=== PATIENT | male | born 1945 | race Caucasian/White ===

== ENCOUNTER 2017-07-08 18:26 | Emergency (ER) | payer OTHER ==
[~2017-07-08] VITALS: Ht 170.2 cm; Wt 63.5 kg
[2017-07-08 18:41] VITALS: BP 132/78
== END 2017-07-08 19:18 | disposition home or self-care (01) ==
LOC: ER 18:26
DX: S41.001A Unspecified open wound of right shoulder, initial encounter (principal); J44.9 Chronic obstructive pulmonary disease, unspecified; I10 Essential (primary) hypertension; F20.9 Schizophrenia, unspecified; I48.91 Unspecified atrial fibrillation; Z88.8 Allergy status to other drugs, medicaments and biological substances; Y04.0XXA Assault by unarmed brawl or fight, initial encounter; Y93.89 Activity, other specified; Y92.89 Other specified places as the place of occurrence of the external cause; Y99.8 Other external cause status

== ENCOUNTER 2019-07-23 02:46 | Inpatient (IN) | payer OTHER ==
[2019-07-23] VITALS (8 sets, daily range): BP systolic 104–126; BP diastolic 51–93
[~2019-07-23] VITALS: Ht 170.2 cm; Wt 65.3 kg
[2019-07-23 03:14] LABS: BE(vivo) 0.6 mmol/L (-2 to +3); HCO3 28.2 mmol/L (22.0-26.0); PCO2 56.3 mmHg (35.0-45.0); PO2 104.4 mmHg (80.0-100.0); pH 7.318 (7.360-7.450); sO2 97.3 % (92.0-98.0)
[2019-07-23 03:15] LABS: HEMATOCRIT 35.5 % (42.0-52.0); HEMOGLOBIN 12.2 gm/dL (14.0-18.0); MCH 31.2 pg (26.0-34.0); MCHC 34.3 g/dL (28.0-37.0); RBC 3.9 mil/uL (4.50-6.00); RDW 13.3 % (10.5-14.5); WBC 9.5 thou/uL (4.0-11.0)
[2019-07-23 03:16] LABS: ANION GAP 10 mmol/L (7-16); BUN 14 mg/dL (7-18); CALCIUM 8.8 mg/dL (8.5-10.1); CHLORIDE 92 mmol/L (98-107); CO2 30 mmol/L (21-32); CREATININE 1.2 mg/dL (0.7-1.3); GLUCOSE 213 mg/dL (74-106); POTASSIUM 3.8 mmol/L (3.5-5.1); SODIUM 132 mmol/L (136-145)
[2019-07-23 03:25] LABS: TROPONIN-I <0.06 ng/mL (<0.06)
[2019-07-23] MEDS ORDERED: LIPITOR40 MG PO (03:53)
[2019-07-23] MEDS ORDERED: ASPIR 8181 M1 PO (03:53)
[2019-07-23] MEDS ORDERED: PULMICORT0.5 MG/22 INH (03:54)
--- NOTE | 2019-07-23 04:04 | NUR ---
20MG CARDIZEM BOLUS GIVEN FROM [facility] PER DR FUNES VERBAL ORDER
[2019-07-23] MEDS ORDERED: BUPROPION HCL100 MG PO (04:05)
[2019-07-23] MEDS ORDERED: DIGOXIN125 MCG PO (04:06)
[2019-07-23] MEDS ORDERED: DEEP SEA NASAL44 M1 NASAL (04:06)
[2019-07-23] MEDS ORDERED: LASIX 40 MG TAB40 M2 PO (04:07)
[2019-07-23] MEDS ORDERED: ELIQUIS5 MG PO (04:07)
[2019-07-23] MEDS ORDERED: CARDIZEM CD240 MG PO (04:07)
[2019-07-23] MEDS ORDERED: MAGOX 400400 MG PO (04:08)
[2019-07-23] MEDS ORDERED: COZAAR 25 MG TA25 M1 PO (04:08)
[2019-07-23] MEDS ORDERED: CENTRUM SILVER1 EAC2 PO (04:09)
[2019-07-23] MEDS ORDERED: ZYPREXA 10 MG T10 MG PO (04:10)
[2019-07-23] MEDS ORDERED: PERFOROMIS20 MCG/2 M INH (04:11)
[2019-07-23] MEDS ORDERED: TYLENOL325 MG PO (04:12)
[2019-07-23] MEDS ORDERED: B-12500 MCG PO (04:12)
[2019-07-23] MEDS ORDERED: ARTIFICIAL TEA1 EAC1 OPHTHALMIC (04:15)
[2019-07-23] MEDS ORDERED: TUSSIN15 MG/5 ML PO (04:16)
[2019-07-23] MEDS ORDERED: IPRATROPIU0.2 MG/1 M INH (04:17)
[2019-07-23] MEDS ORDERED: VENTOLIN HFA 1818 GM INH (04:18)
[2019-07-23 04:25] LABS: APTT 35.7 Seconds (24.5-32.8); INR 1.2; PROTIME 12.8 Seconds (9.3-11.4)
[2019-07-23 04:31] LABS: BE(vivo) 1.3 mmol/L (-2 to +3); HCO3 25.4 mmol/L (22.0-26.0); PCO2 38.4 mmHg (35.0-45.0); PO2 231.4 mmHg (80.0-100.0); pH 7.438 (7.360-7.450); sO2 99.5 % (92.0-98.0)
--- NOTE | 2019-07-23 05:00 | NUR ---
REPORT GIVEN TO REGGIE BARAKAT
--- NOTE | 2019-07-23 06:51 | NUR ---
PT ARRIVED VIA ER ON CARD DRIP. PT IS A LEE OF THE [facility] AND LIVES IN A GROUP LIVING SITUATION IN AN APT WITH ANOTHER ROOMMATE. PT SHOULD A LAB SUPPORT SERVICE TECH STOPPING BY TO SIT WITH PT. ADMISSION COMPLETED AND CARDIO CONSULT CALLED IN. PT USES WALKER AND CANE AT HIS APT.
--- NOTE | 2019-07-23 10:47 | NUR ---
INITIAL ASSESSMENT: Received consult from nursing stating pt is a babb of the [facility]. SW reviewed chart and spoke with nursing. Pt was admitted due to afib with RVR and hypoxia. Cardiology consulted. JINNY spoke with pt's contact, Cha Larsen. Pt resides at [facility] and has 24 hour care. Pt with hx of schizophrenia. Pt is not a babb of the [facility] and is his own decision maker, per Cha. Pt has a walker and w/c. Pt is ambulatory in his apt. Pt has home O2 in place through [employer] and is normally on 2L at rest and 3-4L with activity. Pt's PCP is Dr. Farhad Washburn and tax assistant is Dr. Schaefer at [facility]. Cha states that she or another caregiver will be able to provide transportation home. Pt can have HH services if needed. JINNY is following to assist as needed with discharge planning.
--- NOTE | 2019-07-23 11:50 | 2DMMODE ---
[address] [address] 2 D/M-MODE ECHOCARDIOGRAM Name: MARINA KOLB Room #: 352-P ADM IN M.R.#: [id number] Admission: 07/23/19 Attend Phys: Brian Astorga MD Discharge: Date of : 47 Date of Service: 07/23/19 1149 Report #: [id number] THIS REPORT FOR: //name// APPROVED REPORT Study performed: 07/23/2019 10:36:27 EXAM: Comprehensive 2D, Doppler, and color-flow Echocardiogram Patient Location: Bedside Room #: [facility] Status: routine BSA: 1.76 HR: 80 bpm BP: 113/71 mmHg Rhythm: Atrial Fibrillation Other Information Study Quality: Adequate Indications COPD Diabetes Atrial Fibrillation Dyspnea Hypertension/HDD 2D Dimensions IVC: 21.00 mm Volumes Left Atrial Volume (Systole) LA ESV Index: 36.00 mL/m2 Tricuspid Valve PA Pressure: 48.00 mmHg Left Ventricle The left ventricle is normal size. There is normal LV segmental wall motion. There is normal left ventricular wall thickness. The left ventricular systolic function is normal. The left ventricular ejection fraction is within the normal range. LVEF is 55-60%. This study is not technically sufficient to allow evaluation of the LV diastolic function due to atrial fibrillation. Right Ventricle [address] [place] [address] 2 D/M-MODE ECHOCARDIOGRAM Name: MARINA KOLB Room #: 352-P ADM IN M.R.#: [id number] Admission: 07/23/19 Attend Phys: Brian Astorga MD Discharge: Date of : 47 Date of Service: 07/23/19 1149 Report #: [id number] The right ventricle is normal size. The right ventricular systolic function is normal. Atria Left atrium is dilated. Right atrium is dilated. Aortic Valve The aortic valve is normal in structure. No aortic regurgitation is present. There is no aortic valvular stenosis. Mitral Valve The mitral valve is normal in structure. Mild mitral regurgitation. No evidence of mitral valve stenosis. Tricuspid Valve The tricuspid valve is normal in structure. There is mild tricuspid regurgitation. Estimated PAP 48 mmHg. There is moderate pulmonary hypertension. Pulmonic Valve The pulmonary valve is normal in structure. There is no pulmonic valvular regurgitation. Great Vessels The aortic root is normal in size. IVC is dilated and collapses >50% with inspiration. Pericardium There is no pericardial effusion. <Conclusion> The left ventricle is normal size. LVEF is 55-60%. Left atrium is dilated. Right atrium is dilated. The aortic valve is normal in structure. The mitral valve is normal in structure. Mild mitral regurgitation. The tricuspid valve is normal in structure. There is mild tricuspid regurgitation. Estimated PAP 48 mmHg. There is moderate pulmonary hypertension. [address] [place] [address] 2 D/M-MODE ECHOCARDIOGRAM Name: MARINA KOLB Room #: 352-P ADM IN M.R.#: [id number] Admission: 07/23/19 Attend Phys: Brian Astorga MD Discharge: Date of : 47 Date of Service: 07/23/19 1149 Report #: [id number] The pulmonary valve is normal in structure. There is no pericardial effusion. <ELECTRONICALLY SIGNED> By: David De Leon MD 07/23/19 1149 1149 114 David De Leon MD /INF
--- NOTE | 2019-07-23 19:59 | NUR ---
PATIENT ORIENTED TO SELF, PLACE AND YEAR. HE IS CONCERNED ABOUT HIS CLOTHING AND KEEPS HIS PERSONAL BELONGINGS IN HIS BED. PATIENT OFTEN REQUESTS DIET SOFT DRINKS. PATIENT DOES NOT USE CALL LIGHT, BUT CALLS OUT TO STAFF. PATIENT CONTINUES TO HAVE IRREGULAR HEART BEAT AND NEEDS O2 NC TO MAINTAIN O2 SATS > 92%.
[2019-07-24 03:26] VITALS: BP 103/57
--- NOTE | 2019-07-24 04:57 | NUR ---
PT MAKING PROGRESS TOWARDS GOALS. IN HERE WITH DIAGNOSIS OF AFIB W/RVR. PT PREVIOUSLY ON CARDIZEM GTT, DISCONTINUED DURING DAY SHIFT. PO MEDS HAD BEEN STARTED. PT IN AFIB OVERNIGHT WITH GOOD RATE CONTROL. RATE HAS BEEN IN THE SEVENTIES THROUGHOUT THE NIGHT. PT DENIES ANY SOA OR CHEST DISCOMFORT.
[2019-07-24 05:59] LABS: CALCIUM 8.8 mg/dL (8.5-10.1); CREATININE 0.8 mg/dL (0.7-1.3); POTASSIUM 3.4 mmol/L (3.5-5.1)
[2019-07-24 07:59] VITALS: BP 100/55
--- NOTE | 2019-07-24 08:27 | EKG ---
[address] [address] ELECTROCARDIOGRAM REPORT Name: MARINA KOLB Room #: 352-P ADM IN M.R.#: [id number] Admission: 07/23/19 Attend Phys: Brian Astorga MD Discharge: Date of : 47 Report #: [id number] THIS REPORT FOR: //name// [facility] ED Test Date: 2019-07-23 Test Time: 03:08:47 Pat Name: MARINA KOLB Department: Room: [facility] Gender: M Bottle Labeler: MADYSON : 1945 Requested By: Eduar Yuan Order Number: [id number] MD: Regino Cowart Measurements Intervals [place] Rate: 128 P: MD: QRS: 118 QRSD: 116 T: -35 QT: 298 QTc: 435 Interpretive Statements Atrial fibrillation Nonspecific intraventricular conduction delay Probable anterolateral infarct, recent No previous ECG available for comparison Electronically Signed On 07-24-2019 8:27:36 CDT by Regino Cowart [email or web address] <ELECTRONICALLY SIGNED> By: Regino Cowart MD 07/24/19 0827 0308 7 Regino Cowart MD /CINDI
[2019-07-24] MEDS ORDERED: TORSEMIDE20 MG PO (10:55)
[2019-07-24 11:08] VITALS: BP 114/63
[2019-07-24 13:18] VITALS: BP 114/63
--- NOTE | 2019-07-24 13:43 | NUR ---
DISCHARGE NOTE: JINNY reviewed chart and spoke with nursing and attending physician. Pt is medically stable for discharge home today. Pt is back to his baseline with home O2. JINNY spoke with pt's caregiver, Cha, via phone to provide update and notify of discharge. Cha asked about possible SNF placement or HH. JINNY explained that a pt must be admitted for three midnights in order to qualify for SNF per Medicare guidelines. Cha verbalized understanding and requests HH services. JINNY discussed options. Carla requested [facility]. Pt's caregiver to provide transportation home around 1500 this afternoon. JINNY notified attending physician to request HH orders. JINNY faxed clinical info and discharge orders/summary to [facility] and spoke with Harriet in intake to notify of new referral/discharge. Contact info for [facility] placed in pt's discharge summary. Pt's nurse updated. No additional SW needs identified at this time, but is available to assist should needs arise.
== END 2019-07-24 15:57 | disposition home health service (06) | DRG 189 ==
LOC: ER 02:46 → EROBS 04:14 → 3W 04:14 → ENTRNSPT 07-24 15:44 → EDTRNSPTSTS 07-24 15:49 → 3W 07-24 15:57
PROVIDERS: Emergency Medicine; Hospitalist; Nurse Practitioner Family; ADMIT Hospitalist
PROC: 5A09357 Assistance with Respiratory Ventilation, Less than 24 Consecutive Hours, Continuous Positive Airway Pressure (ICD-10-PCS; principal; 2019-07-23)
DX: J96.21 Acute and chronic respiratory failure with hypoxia (principal); I50.30 Unspecified diastolic (congestive) heart failure; D68.59 Other primary thrombophilia; J44.9 Chronic obstructive pulmonary disease, unspecified; I48.2 Chronic atrial fibrillation; E78.5 Hyperlipidemia, unspecified; F20.9 Schizophrenia, unspecified; F03.90 Unspecified dementia, unspecified severity, without behavioral disturbance, psychotic disturbance, mood disturbance, and anxiety; Z60.2 Problems related to living alone; E53.8 Deficiency of other specified B group vitamins; I11.0 Hypertensive heart disease with heart failure; Z88.8 Allergy status to other drugs, medicaments and biological substances; Z87.891 Personal history of nicotine dependence; Z99.81 Dependence on supplemental oxygen; Z79.82 Long term (current) use of aspirin; Z79.899 Other long term (current) drug therapy
CPT/HCPCS: 10879

== ENCOUNTER 2020-01-10 22:04 | Emergency (ER) | payer OTHER ==
[~2020-01-10] VITALS: Ht 170.2 cm; Wt 63.5 kg
[~2020-01-10 22:04] MED LIST: ARTIFICIAL TEA1 EAC1 OPHTHALMIC; ASPIR 8181 M1 PO; B-12500 MCG PO; BUPROPION HCL100 MG PO; CARDIZEM CD240 MG PO; CENTRUM SILVER1 EAC2 PO; COZAAR 25 MG TA25 M1 PO; DEEP SEA NASAL44 M1 NASAL; DIGOXIN125 MCG PO; ELIQUIS5 MG PO; IPRATROPIU0.2 MG/1 M INH; LASIX 40 MG TAB40 M2 PO; LIPITOR40 MG PO; MAGOX 400400 MG PO; PERFOROMIS20 MCG/2 M INH; PULMICORT0.5 MG/22 INH; TORSEMIDE20 MG PO; TUSSIN15 MG/5 ML PO; TYLENOL325 MG PO; VENTOLIN HFA 1818 GM INH; ZYPREXA 10 MG T10 MG PO
[2020-01-10] MEDS ORDERED: KLOR-CON 10 ER10 MEQ PO (22:45)
[2020-01-10] MEDS ORDERED: VITAMIN B-1100 M2 PO (22:47)
[2020-01-11 01:00] VITALS: BP 117/68
== END 2020-01-11 01:50 | disposition home or self-care (01) ==
LOC: ER 22:04
DX: S61.512A Laceration without foreign body of left wrist, initial encounter (principal); S61.511A Laceration without foreign body of right wrist, initial encounter; S81.011A Laceration without foreign body, right knee, initial encounter; I10 Essential (primary) hypertension; I48.91 Unspecified atrial fibrillation; E11.9 Type 2 diabetes mellitus without complications; E78.5 Hyperlipidemia, unspecified; J44.9 Chronic obstructive pulmonary disease, unspecified; F20.9 Schizophrenia, unspecified; Z79.01 Long term (current) use of anticoagulants; Z87.891 Personal history of nicotine dependence; Z88.8 Allergy status to other drugs, medicaments and biological substances; W01.0XXA Fall on same level from slipping, tripping and stumbling without subsequent striking against object, initial encounter; Y93.89 Activity, other specified; Y92.89 Other specified places as the place of occurrence of the external cause; Y99.8 Other external cause status